=== PATIENT | male | born 1955 | race Caucasian/White ===

== ENCOUNTER 2022-04-16 16:12 | Outpatient (CLI) | payer BC, SELFPAY ==
--- NOTE | ~2022-04-16 | CT_ITS ---
EXAMINATION: CT lung screening DATE: 04/16/2022 16:39 INDICATION: 40 pack-year smoking history TECHNIQUE: Computed tomography (CT) of the chest was performed without intravenous contrast. Automate d exposure control and iterative reconstruction technique were employed. Exam dose: 234.80 mGy-cm to yesenia exam DLP. COMPARISON: 11/04/2015 CT chest FINDINGS: Stable 3.5 mm peripheral middle lobe opacity since 11/04/2015. Stable pleural-based 4 mm right lower lobe opacity, unchanged since 11/04/2015. Left lower lobe calcified pulmonary granuloma. Chronic mild discoid scar of the lingula. Calcified left hilar and particularly calcified subcarinal nodes and multiple hepatic and splenic ely cified granulomas, consistent with old granulomatous disease. Normal heart size. No pericardial or pleural effusion. No hilar or mediastinal mass lesion or lymphad enopathy. No thoracic aortic aneurysm. Normal morphology of the adrenal glands. Prominent degenerative disc disease in the lower cervical spine. Diffuse idiopathic skeletal hyperost osis of the thoracic spine. IMPRESSION: Lung RADS category 1: Negative Recommendation: Continue annual screening with LDCT in 12 months Reviewed, dictated and finalized at [facility]. Reviewed, dictated and finalized at location A. IGN EXCHANGE STUDENT COORDINATOR
== END 2022-04-16 16:13 | disposition home or self-care (01) ==
PROVIDERS: PCP Family Medicine; Visit Provider Physician Assistant
DX: Z12.2 Encounter for screening for malignant neoplasm of respiratory organs (principal); F17.210 Nicotine dependence, cigarettes, uncomplicated
CPT/HCPCS: 71271

== ENCOUNTER 2023-10-21 20:43 | Emergency (ER) | payer MEDICARE, SELFPAY ==
--- NOTE | ~2023-10-21 | CT_ITS ---
EXAMINATION: CT abdomen pelvis wo con DATE: 10/22/2023 05:24 INDICATION: Right lower back pain. TECHNIQUE: Computed tomography (CT) of the abdomen and pelvis was performed without intravenous contr ast. The dose-length product was 941.46 mGy-cm. Automated exposure control and iterative reconstructi on technique were employed. COMPARISON: None. FINDINGS: Lung bases unremarkable. Heart size normal. No significant pleural or pericardial effusion. There are calcified granulomas of the liver and spleen. There is atherosclerosis of the aorta without evidence for aneurysm. Nonobstructive bowel gas pattern . Bladder is decompressed. Gallbladder is present. Pancreas, adrenal glands and right kidney are unremarkable. There is 2 mm non obstructing left renal stone. No ureteral stone or hydronephrosis. There is ectasia of the aorta with infrarenal abdominal aortic aneurysm measuring 3.7 cm. There is a retroaortic left renal vein. There is osteoarthritis of the hips. Moderate lumbar spondylosis. No evidence for hernia. No abnormal pelv ic masses or fluid collections. No lymphadenopathy. IMPRESSION: 1. No acute abdominal abnormality. 2: Nonobstructing left nephrolithiasis. 3: Infrarenal abdominal aortic aneurysm measuring 3.7 cm. Reviewed, dictated and finalized at location [facility].
[2023-10-21 20:54] VITALS: BP 143/68; PULSE 68; RESP 18; TEMP 36.5; O2SAT 97
[2023-10-21 21:11] LABS: Appearance Urine Clear (Clear); Bacteria Urine None Seen /hpf; Bilirubin Urine Negative (Negative); Blood Urine Trace (Negative); Color Urine Yellow (Yellow); Glucose Urine UA Negative (Negative); Ketones Urine Negative (Negative); Leukocyte Esterase Ur Negative LEU/UL (Negative); Nitrate Urine Negative (Negative); Non Pathogenic Casts 0-2; Protein Urine Trace mg/dL (Negative); Specific Grav Ur 1.033 (1.001-1.035); Squamous Epithelial Cell Urine None Seen /hpf (Few); WBC Urine 0-5 /hpf (0-3); pH Urine 5.5 (5.0-9.0)
[2023-10-21 21:14] LABS: Add Urine Microscopic? YES
[2023-10-22] VITALS (15 sets, daily range): BP systolic 137; BP diastolic 84; PULSE 68–74; RESP 16–18; O2SAT 94–100
[2023-10-22 03:30] LABS: Basophils Absolute Auto 0.1 K/mm3 (0.0-0.1); Basophils Percent Auto 0.9 % (0.2-1.2); Eosinophils Absolute Auto 0.7 K/mm3 (0-0.3); Eosinophils Percent Auto 6.4 % (0-4.4); Hematocrit 45.9 % (42.0-52.0); Hemoglobin 14.8 g/dL (14.0-18.0); Immature Granulocyte Absolute 0.05 K/mm3 (0.00-0.031); Immature Granulocyte Percent A 0.5 % (0-0.5); Lymphocytes Absolute Auto 4.04 K/mm3 (0.9-3.2); Lymphocytes Percent Auto 36.7 % (18.3-44.2); Mean Corpuscular HGB Conc 32.2 g/dl (32-36); Mean Corpuscular Hemoglobin 30.1 pg (26-34); Mean Corpuscular Volume 93.3 fl (80-100); Mean Platelet Volume 10.4 fl (7.4-10.4); Monocytes Absolute Auto 1.1 K/mm3 (0.1-0.6); Monocytes Percent Auto 9.6 % (2.6-8.5); Neutrophils Absolute Auto 5.1 K/mm3 (1.3-6.7); Neutrophils Percent Auto 45.9 % (45.5-73.1); Platelet Count Result 234 k/mm3 (150-375); Red Blood Count 4.92 M/mm3 (4.6-6.20); Red Cell Distribution Width 13.6 % (11.5-14.5)
[2023-10-22 03:39] LABS: Alanine Aminotransferase 26 U/L (6-50); Albumin Level 4.6 g/dL (3.5-5.1); Alkaline Phosphatase 78 U/L (38-126); Anion Gap 9 mmol/L (4-12); Aspartate Amino Transferase 37 U/L (17-59); Bilirubin,Total 0.5 mg/dL (0.2-1.3); Blood Urea Nitrogen 20 mg/dL (9-20); Calcium 10.6 mg/dL (8.4-10.2); Carbon Dioxide 25 mmol/L (22-30); Chloride 105 mmol/L (98-107); Estimated CRCL calculation 79 ml/min; Estimated Glomerular Filt Rate > 60; Glucose 99 mg/dL (65-110); Lipase 119 U/L (23-300); Sodium 139 mmol/L (137-145)
[2023-10-22] MEDS: methocarbamoL 750 MG TABLET 1500 MG PO (05:08)
[2023-10-22] MEDS: ACETAMINOPHEN 500 MG TABLET 1000 MG PO (05:08)
[2023-10-22] MEDS: KETOROLAC 15 MG/ML VIAL (*BKC) IV PUSH (05:09)
--- NOTE | 2023-10-22 06:17 | ED.GENADULT ---
HPI - General Adult General Chief complaint: Back Pain/Injury Stated complaint: back pain Time Seen by Provider: 10/22/23 03:59 History of Present Illness HPI narrative: This is a 68-year-old male presenting lower back pain. Patient pain is in the right paralumbar area and radiates into his groin. It is significantly worse with movement. He has taken Motrin with some relief. Patient denies fevers chills nausea vomiting diarrhea. Does note some slight dysuria without urgency or frequency. Patient denies history of cancer, urinary retention bowel incontinence her low lower extremity weakness. No history of IV drug abuse. Related Data Allergies Allergy/AdvReac Type Severity Reaction Status Date / Time codeine Allergy Unknown Itching Verified 09/17/22 15:57 [facility] Past Medical History Medical History (Updated 10/22/23 @ 06:26 by Jefferson Zambrano MD) Aortic valve stenosis IFG (impaired fasting glucose) Serum calcium elevated Family History Family History Sibling Carcinoma of colon Social History Social History Smoking status: Current every day smoker Tobacco type: cigarettes Second hand tobacco smoke exposure: Yes Smoking end date: 04/04/16 Alcohol intake: current Substance use: never Substance use type: does not use Living arrangements: with family Occupation/Education: occupation Gender identity (if verbalized by the patient): Male Exam Narrative: APPEARANCE: No apparent distress. Head: atraumatic. EYES: EOMI, NOSE: Atraumatic NECK: Trachea midline RESPIRATORY: No increased rate of breathing CARDIOVASCULAR: RRR, ABDOMINAL: Non-distended MUSCULOSKELETAl: Reproducible pain with the patient sits up, straight leg negative bilaterally, no tenderness palpation in the paralumbar region NEURO: Alert. Moving 4/4 extremities SKIN:: Warm, dry. Normal color PSYCHIATRIC: Normal affect Course Vital Signs Vital signs: Vital Signs Temperature 97.7 F 10/21/23 20:54 Pulse Rate 68 10/21/23 20:54 Respiratory Rate 18 10/21/23 20:54 Blood Pressure 143/68 H 10/21/23 20:54 Pulse Oximetry 97 10/21/23 20:54 Oxygen Delivery Room Air 10/21/23 20:54 Temperature 97.7 F 10/21/23 20:54 Pulse Rate 74 10/22/23 00:17 Respiratory Rate 18 10/22/23 00:17 Blood Pressure 137/84 10/22/23 00:17 Pulse Oximetry 98 10/22/23 00:17 Oxygen Delivery Room Air 10/21/23 20:54 Medical Decision Making MDM Narrative Medical decision making narrative: -Course: 68-year-old male presenting with right paralumbar pain. CT showed osteoarthritis of the hips but no other acute findings. Laboratory studies unremarkable. Patient improved with NSAIDs and muscle relaxers. Patient will be discharged. Given return precautions. Patient informed of incidental 3.7 cm abdominal aortic aneurysm -DDX includes but is not limited to: Lower back strain, kidney stone, sciatica, appendicitis -Independent interpretation of studies: Lab reviewed Imaging review -Interventions: Toradol, Tylenol, Robaxin -Shared decision making / Disposition: discharged -RX Tylenol Robaxin Vital Signs Vital Signs: Vital Signs Temperature 97.7 F 10/21/23 20:54 Pulse Rate 68 10/21/23 20:54 Respiratory Rate 18 10/21/23 20:54 Blood Pressure 143/68 H 10/21/23 20:54 Pulse Oximetry 97 10/21/23 20:54 Oxygen Delivery Room Air 10/21/23 20:54 Temperature 97.7 F 10/21/23 20:54 Pulse Rate 74 10/22/23 00:17 Respiratory Rate 18 10/22/23 00:17 Blood Pressure 137/84 10/22/23 00:17 Pulse Oximetry 98 10/22/23 00:17 Oxygen Delivery Room Air 10/21/23 20:54 Lab Data 10/22/23 03:23 10/22/23 03:23 Labs: Lab Results 10/21/23 10/22/23 Range/Units 21:01 03:23 WBC 11.0 H (4.5-10.0) K/mm3 RBC 4.92 (4.6-6.20) M/mm3 Hgb 14.8 (
== END 2023-10-22 06:54 | disposition home or self-care (01) ==
PROVIDERS: Emergency Provider Emergency Medicine; PCP Family Medicine
DX: M54.50 Low back pain, unspecified (principal); I35.0 Nonrheumatic aortic (valve) stenosis; Z87.891 Personal history of nicotine dependence; M16.0 Bilateral primary osteoarthritis of hip; Z79.899 Other long term (current) drug therapy; Z79.82 Long term (current) use of aspirin
CPT/HCPCS: 36415; 74176; 80053; 81001; 83690; 85025; 96374; 99284; A9270; J1885

== ENCOUNTER 2024-06-22 10:16 | Outpatient (CLI) | payer MEDICARE, SELFPAY ==
--- NOTE | ~2024-06-22 | CT_ITS ---
CT Scan of the Chest without Contrast: Clinical Indication: Lung cancer screening, nicotine dependence Technique: Contiguous sections were acquired throughout the chest without intravenous contrast. Dose reduction technique was used on this scan by utilizing automated exposure control and iterative recon struction technique. The dose-length product (DLP) was 264.57 mGy-cm. COMPARISON: 06/17/2023 Findings: There is no evidence of any significant mediastinal, hilar or axillary lymphadenopathy. Densely calci fied subcarinal and left hilar lymph nodes are present. Coronary artery calcifications are present. T here is prominent calcification at the region of the aortic valve. There is no evidence of pleural or pericardial effusion. Stable 3 mm right middle lobe pulmonary nodule. Stable calcified left basilar granuloma. Images through the upper abdomen reveal no abnormalities. Impression: Lung RADS 2: Benign appearance. 12 month follow-up screening CT advised. Reviewed, dictated and finalized at [facility]. Impression: Lung RADS 2: Benign appearance. 12 month follow-up screening CT advised.
--- OUTSIDE RECORDS SUMMARY | 2024-06-22 11:23 | XMS_ITS | Patient Health Record ---
Author Organization [facility] Address [address] [place] [address] Support Name Relationship Address Phone Alfreda Moura Emergency Contact Unknown Mac Alonso Guarantor Unknown [phone] REASON FOR REFERRAL No Information MEDICATIONS Medication SIG (Take, Route, Frequency, Duration) Notes Start Date End Date Status Levothyroxine Sodium 50 MCG 1 tab(s) ora lly once a day for 30 day(s) Active SOCIAL HISTORY Tobacco Use: Social History Observation Description Date Details (start date - stop date) Current Smoker NA - NA Sex Assigned At : Social History Observation Description Sex Assigned At Unknown Tobacco Use: Question Answer Notes Are you a: current smoker How often do you smoke? every day How many cigarettes a day do you smoke? 11-20 How soon after you wake do you smoke your first cigarette? 31-60 min Are you interested in quitting? Not ready to asuncion t PLAN OF TREATMENT No Information Insurance Providers Payer Name Payer Address Payer Phone Subscriber Number Group Number Insured Name Patient Relationship to Insured Coverage Start Date Coverage End Date [id number] [place] [address] [id number] Mac Alonso Self - patient is the insured
--- OUTSIDE RECORDS SUMMARY | 2024-06-22 11:24 | XMS_ITS | Clinical Summary ---
Author Organization [facility] Address [address] [place] [id number] Care Team Providers Care Signs Cleaner Name Role Phone Alberto Urias MD Primary Care Provider [phone] Social History Tobacco Use Types Packs/Day Years Used Date Smoking Tobacco: Never Assessed Sex and Gender Information Value Date Recorded Sex Assigned at Not on file Legal Sex Male 9:41 PM CDT Gender Identity Not on file Sexual Orientation Not on file Plan of Treatment Health Maintenance Due Date Last Done Comments Colorectal Cancer Screening Colonoscopy (10 Years) 1955 Hepatitis C 1974 DTaP, Tdap and Td Vaccines ( 1 - Tdap) 1975 Zoster Vaccines (1 of 2) 2006 Pneumococcal Vaccine: 65+ Ye ars (1 of 1 - PCV) 2021 COVID-19 Vaccine ( - 2023-2 5 season) 2023 Influenza Adult (#1) 2024 RSV Immunization or 60+ Years (1 - 1-dose 75+ series) 2031 Meningococcal B Vaccine Aged Out No l onger eligible based on patient's age to complete this topic Meningococcal Vaccine Aged Out No jyoti anna eligible based on patient's age to complete this topic RSV Immunizations Under 20 Months Aged Out No longer eligible based on patient's age to complete this topic Care Teams Signs Cleaner Relationship Specialty Start Date End Date Alberto Urias MD [address] [place] [address] PCP - General 09/11/14
--- OUTSIDE RECORDS SUMMARY | 2024-06-22 11:24 | XMS_ITS | Referral Summary ---
Author Organization [facility] [address] [facility] [address] Address [address] [place] [address] Care Team Providers Care Full Stack Software Developer Name Role Phone Alberto Urias MD Primary Care Provider Encounters Date Type Department Care Team Description 06/08/2024 11:15 AM CHANNEL ROUGHER Ancillary Procedure [facility] Medical [facility] Cardiology at [address] [place] [address] Nonrheumatic aortic valve stenosis; Coronary artery disease involving [place] coronary artery of [place] heart without angina pectoris 05/18/2024 11:00 AM CHANNEL ROUGHER Office Visit [facility] Cardiology at [address] [place] [address] Jamal Calvert MD Nonrheumatic aortic valve stenosis (Primary Dx); Coronary artery disease involving [place] coronary artery of [place] heart without angina pectoris; NSTEMI (non-ST elevated myocardial infarction) ([facility]); Severe obesity ([facility]) from Last 3 Months Allergies Active Allergy Reactions Criticality Noted Date Comments Codeine Itching Low Medications aspirin 81 mg chewable tablet Take 1 tablet (81 mg total) by mouth daily 7 Active clobetasol (CLOBEX) 0.05 % shampooIndicati ons:Scalp Psoriasis 4 8 Active nitroglycerin (NITROSTAT) 0.[address] 1 TABLET UNDER THE TONGUE NEEDED FOR CHEST PAIN. MAX 3 TABS 5 MINUTES APART 94 7 Active CHANTIX CONTINUING MONTH BOX 1 mg tabletIndicatio ns:Smoking Cessation 3 8 Active albuterol HFA (PROVENTIL HFA,VENTOLIN HFA,PROAIR HFA) 90 mcg/actuation inhalerIndicati ons:Bronchitis Inhale 2 puffs every 6 (six) hours as needed for wheezing or shortness of breath 1 each 4 Active benzonatate (TESSALON) 200 mg capsuleIndicati ons:Bronchitis Take 1 capsule (200 mg total) by mouth 3 (three) times a day as needed for cough 30 capsule 4 Active metoprolol XL (TOPROL-XL) 25 mg extended release tablet Take 1 tablet (25 mg total) by mouth daily Active levothyroxine (SYNTHROID) 150 mcg tablet Take 1 tablet (150 mcg total) by mouth cook's assistant before breakfast Active rosuvastatin (CRESTOR) 5 mg tablet Take 1 tablet (5 mg total) by mouth daily Active Active Problems Problem Noted Date Diagnosed Date Severe obesity 05/18/2024 Essential hypertension 04/29/2017 Mixed hyperlipidemia 04/29/2017 Nonrheumatic aortic valve stenosis 04/29/2017 Bilateral carotid bruits 04/29/2017 Bicuspid aortic valve 04/29/2017 Coronary artery disease invo lving [place] coronary artery of [place] heart without angina pectoris 04/29/2017 Dietary counseling 04/29/2017 NSTEMI (non-ST elevated myocardial infarction) 0 04/26/2016 Social History Tobacco Use Types Packs/Day Years Used Date Smoking Tobacco: Heavy Smoker Smokeless Tobacco: Never Comments:Smoking History Pac ks/day: 1.5 Packs Alcohol Use Standard Drinks/Week Comments Yes 0 (1 standard drink = 0.6 oz pur e alcohol) Sex and Gender Information Value Date Recorded Sex Assigned at Not on file Legal Sex Male 1:06 PM CHANNEL ROUGHER Gender Identity Not on file Sexual Orientation Not on file Last Filed Vital Signs Vital Sign Reading Time Taken Comments Blood Pressure 122/86 05/18/2024 10:54 AM CHANNEL ROUGHER Pulse 86 05/18/2024 10:54 AM CHANNEL ROUGHER Temperature 37.1 C (98.8 F) 07/22/2023 12:42 PM CDT Respiratory Rate 20 07/22/2023 12:42 PM CDT Oxygen Saturation 94% 05/18/2024 10:54 AM CHANNEL ROUGHER Inhaled Oxygen Concentration - - Weight 116.1 kg (256 lb) 05/18/2024 10:54 AM CHANNEL ROUGHER Height 180.3 cm (5' 11 ) 05/18/2024 10:54 AM CHANNEL ROUGHER Body Mass Index 35.7 05/18/2024 10:54 AM CHANNEL ROUGHER Plan of Treatment Not on file Procedures Procedure Name Priority Date/Time Associated Diagnosis Comments TRANSTHORACIC ECHO (TTE) COMPLETE W DOPPLER/CF WO CONTRAST Routine 06/08/2024 11:47 AM CHANNEL ROUGHER Nonrheumatic aortic valve stenosis Coronary artery disease involving [place] coronary artery of [place] heart without angina pectoris ELECTROCARDIOGRAM REPORT Routine 025 11:52 AM CHANNEL ROUGHER NSTEMI (non-ST elevated myocardial infarction) (HCC) from Last 3 Months Results * TRANSTHORACIC ECHO (TTE) COMPLETE W DOPPLER/CF WO CONTRAST (06/08/2024 11:47 AM CHANNEL ROUGHER) LV EF 65 % CONS SCIMAGE Anatomical Region Laterality Modality Ultrasound 06/08/2024 11:1 2 AM CHANNEL ROUGHER Narrative 06/08/2024 12:25 PM CHANNEL ROUGHER [facility] Medical Group Cardiology [facility], [address], [place] [address] P:[phone] P:[phone] Echocardiographic Report Patient Name: FLORENTIN CARRILLO B : 1955 Study Date: 06/08/2024 11:12:26 AM Gender: M Tech: Location: [facility] Ref Provider: JAMAL CALVERT Height(Cm): 180 BSA: 2.41 Weight(Kg): 116.1 Heart Rate: 70 BP: 122 / 86 Quality: Good Order Provider: JAMAL CALVERT PROCEDURES: Echocardiographic Report: Transthoracic echocardiogram with complete 2D, M-Mode, and color Doppler examination. With Strain Analysis. INDICATIONS: Coronary Artery Disease and I35.0 Nonrheumatic aortic (valve) stenosis. MEASUREMENTS: 2D/MM Value Range Doppler Value Range EF Mod BP 63 % [ 52 - 72 ] MERLE Vmax 0.67 cm2 [ 2.00 - 4.00 ] EF Teich MM 54 % [ 52 - 72 ] AV Mean PG 41 mmHg Estimated EF 65 % AV Peak Jaime 3.88 m/s [ 1.00 - 1.70 ] LVIDd 2D 5.26 cm [ 4.20 - 5.80 ] AV Peak PG 60 mmHg LVIDd MM 4.96 cm [ 4.20 - 5.80 ] AV VTI 90.99 cm LVIDs 2D 3.57 cm [ 2.50 - 4.00 ] LVOT Diam 2.07 cm [ 1.70 - 2.10 ] LVIDs MM 3.56 cm [ 2.50 - 4.00 ] LVOT Peak Jaime 0.77 m/s [ 0.70 - 1.10 ] LVPWd 2D 1.36 cm [ 0.60 - 1.00 ] LVOT VTI 18.47 cm LVPWd MM 1.06 cm [ 0.60 - 1.00 ] MV E Peak Jaime 0.49 m/s [ 0.60 - 1.30 ] IVSd 2D 1.44 cm [ 0.60 - 1.00 ] MV A Peak Jaime 0.67 m/s [ 1.00 - 1.20 ] IVSd MM 1.16 cm [ 0.60 - 1.00 ] MV Decel Time 378 msec [ 104 - 258 ] LA Dimension MM 3.94 cm [ 3.00 - 4.00 ] PV Peak Jaime 1.44 m/s [ 0.40 - 0.80 ] AoR Diam MM 4.21 cm [ 3.10 - 3.70 ] Lateral E` 0.04 m/s [ 0.10 - 0.15 ] LA Volume Index 17 cc/m2 [ 16 - 34 ] E/E` 12 2D/MM Value Range Doppler Value Range - FINDINGS: Interpretation Site: Exam was interpreted at [facility]. Left Ventricle: Normal left ventricular size. Moderate concentric left ventricular hypertrophy. Normal global left ventricular systolic function. Impaired diastolic relaxation Grade I. Ejection fraction is measured at 63 %. Ejection Fraction is visually estimated to be 65 %. Global Longitudinal Strain is -14 %. Right Ventricle: Normal right ventricular size. Left Atrium: Left atrial size is within upper limits of normal. Right Atrium: The right atrium is normal in size. Atrial Septum: Normal atrial septum. Mitral Valve: Normal appearance of the mitral valve. Aortic Valve: Severe aortic stenosis. Peak Velocity of 3.88 m/s. Peak gradient of 60.0 mmHg. Mean gradient of 41.0 mmHg. Valve area of 0.7 cm2. Possible bicuspid aortic valve. No aortic regurgitation. Tricuspid Valve: Normal appearance of the tricuspid valve. Mild tricuspid regurgitation. Pulmonic Valve: Normal appearance of the pulmonic valve. Pericardium: Normal pericardium with no significant pericardial effusion. Aorta: Normal aortic root. IVC: Normal size and normal respiratory collapse consistent with normal right atrial pressure (<5 mmHg). Pulmonary Artery: Normal pulmonary artery size. CONCLUSIONS: Normal left ventricular size. Moderate concentric left ventricular hypertrophy. Normal global left ventricular systolic function. Impaired diastolic relaxation Grade I. Ejection fraction is measured at 63 %. Ejection Fraction is visually estimated to be 65 %. Global Longitudinal Strain is -14 %. Severe aortic stenosis. Peak Velocity of 3.88 m/s. Peak gradient of 60.0 mmHg. Mean gradient of 41.0 mmHg. Valve area of 0.7 cm2. Suspect bicuspid aortic valve. No aortic regurgitation. Electronically Signed By: Jamal Calvert MD, [facility] 06/08/2024 12:24:45 PM CHANNEL ROUGHER Procedure Note Jamal Calvert MD - 06/08/2024 [facility] Medical Group Cardiology [address] [place] [address], [address], [place] [address] P:[phone] P:[phone] Echocardiographic Report Patient Name: FLORENTIN CARRILLO B : 1955 Study Date: 06/08/2024 11:12:26 AM Gender: M Tech: Location: [facility] Ref Provider: JAMAL CALVERT Height(Cm): 180 BSA: 2.41 Weight(Kg): 116.1 Heart Rate: 70 BP: 122 / 86 Quality: Good Order Provider: JAMAL CALVERT PROCEDURES: Echocardiographic Report: Transthoracic echocardiogram with complete 2D, M-Mode, and color Dopplerexamination. With Strain Analysis. INDICATIONS: Coronary Artery Disease and I35.0 Nonrheumatic aortic (valve) stenosis. MEASUREMENTS: 2D/MM Value Range Doppler ValueRange EF Mod BP 63 % [ 52 - 72 ] MERLE Vmax 0.67cm2 [ 2.00 - 4.00 ] EF Teich MM 54 % [ 52 - 72 ] AV Mean PG 41mmHg Estimated EF 65 % AV Peak Jaime 3.88m/s [ 1.00 - 1.70 ] LVIDd 2D 5.26 cm [ 4.20 - 5.80 ] AV Peak PG 60mmHg LVIDd MM 4.96 cm [ 4.20 - 5.80 ] AV VTI 90.99cm LVIDs 2D 3.57 cm [ 2.50 - 4.00 ] LVOT Diam 2.07 cm[ 1.70 - 2.10 ] LVIDs MM 3.56 cm [ 2.50 - 4.00 ] LVOT Peak Jaime 0.77m/s [ 0.70 - 1.10 ] LVPWd 2D 1.36 cm [ 0.60 - 1.00 ] LVOT VTI 18.47cm LVPWd MM 1.06 cm [ 0.60 - 1.00 ] MV E Peak Jaime 0.49m/s [ 0.60 - 1.30 ] IVSd 2D 1.44 cm [ 0.60 - 1.00 ] MV A Peak Jaime 0.67m/s [ 1.00 - 1.20 ] IVSd MM 1.16 cm [ 0.60 - 1.00 ] MV Decel Time 378msec [ 104 - 258 ] LA Dimension MM 3.94 cm [ 3.00 - 4.00 ] PV Peak Jaime 1.44m/s [ 0.40 - 0.80 ] AoR Diam MM 4.21 cm [ 3.10 - 3.70 ] Lateral E` 0.04m/s [ 0.10 - 0.15 ] LA Volume Index 17 cc/m2 [ 16 - 34 ] E/E` 12 2D/MM Value Range Doppler ValueRange - FINDINGS: Interpretation Site: Exam was interpreted at [facility]. Left Ventricle: Normal left ventricular size. Moderate concentric left ventricularhypertrophy. Normal global left ventricular systolic function. Impaired diastolic relaxationGrade I. Ejection fraction is measured at 63 %. Ejection Fraction is visuallyestimated to be 65 %. Global Longitudinal Strain is -14 %. Right Ventricle: Normal right ventricular size. Left Atrium: Left atrial size is within upper limits of normal. Right Atrium: The right atrium is normal in size. Atrial Septum: Normal atrial septum. Mitral Valve: Normal appearance of the mitral valve. Aortic Valve: Severe aortic stenosis. Peak Velocity of 3.88 m/s. Peak gradient of 60.0mmHg. Mean gradient of 41.0 mmHg. Valve area of 0.7 cm2. Possible bicuspid aorticvalve. No aortic regurgitation. Tricuspid Valve: Normal appearance of the tricuspid valve. Mild tricuspid regurgitation. Pulmonic Valve: Normal appearance of the pulmonic valve. Pericardium: Normal pericardium with no significant pericardial effusion. Aorta: Normal aortic root. IVC: Normal size and normal respiratory collapse consistent with normal rightatrial pressure (<5 mmHg). Pulmonary Artery: Normal pulmonary artery size. CONCLUSIONS: Normal left ventricular size. Moderate concentric left ventricularhypertrophy. Normal global left ventricular systolic function. Impaired diastolic relaxationGrade I. Ejection fraction is measured at 63 %. Ejection Fraction is visuallyestimated to be 65 %. Global Longitudinal Strain is -14 %. Severe aortic stenosis. Peak Velocity of 3.88 m/s. Peak gradient of 60.0mmHg. Mean gradient of 41.0 mmHg. Valve area of 0.7 cm2. Suspect bicuspid aorticvalve. No aortic regurgitation. Electronically Signed By: Jamal Calvert MD, [facility] 06/08/2024 12:24:45 PM CHANNEL ROUGHER us Jamal Calvert MD CV ECHO PROCEDURES Final Result * Electrocardiogram Report (05/18/2024 11:52 AM CHANNEL ROUGHER) us Jamal Calvert MD ECG ORDERABLES Final Re sult from Last 3 Months Insurance [facility] MEDICARE ADVANTAGE [facility] MEDIC[facility] Address: [address] [address] Care Teams Full Stack Software Developer Relationship Specialty Start Date End Date Alberto Urias MD [address] [place] [address] PCP - General 10/03/14
--- OUTSIDE RECORDS SUMMARY | 2024-06-22 11:24 | XMS_ITS | Clinical Summary ---
Author Organization [facility] [address] Address [address] [place] [address] Care Team Providers Care Inventory Control Assistant Name Role Phone Alberto Urias MD Primary Care Provider Allergies Active Allergy Reactions Criticality Noted Date [...] 1 tablet (150 mcg total) by mouth quiller hand before breakfast Active rosuvastatin (CRESTOR) 5 mg tablet Take 1 tablet (5 mg total) by mouth daily Active Active Problems Problem Noted Date Diagnosed Date Severe obesity 05/18/2024 Essential hypertension 04/29/2017 Mixed hyperlipidemia 04/29/2017 Nonrheumatic aortic valve stenosis 04/29/2017 Bilateral carotid bruits 04/29/2017 Bicuspid aortic valve 04/29/2017 Coronary artery disease invo lving [place] coronary artery of [place] heart without angina pectoris 04/29/2017 Dietary counseling 04/29/2017 NSTEMI (non-ST elevated myocardial infarction) 0 04/26/2016 Encounters Date Type Department Care Team Description 06/08/2024 11:15 AM EVAPORATOR SUPERVISOR Ancillary Procedure [facility] Medical [facility] Cardiology at [address] [place] [phone] Nonrheumatic aortic valve stenosis; Coronary artery disease involving [place] coronary artery of [place] heart without angina pectoris 05/18/2024 11:00 AM EVAPORATOR SUPERVISOR Office Visit [facility] Cardiology at [address] [place] [id number] Jamal Calvert MD Nonrheumatic aortic valve stenosis (Primary Dx); Coronary artery disease involving [place] coronary artery of [place] heart without angina pectoris; NSTEMI (non-ST elevated myocardial infarction) (HCC); Severe obesity (HCC) from Last 3 Months Medical History Medical History Date Comments Hyperlipidemia Hypertension Thyroid disease Valvular disease Coronary artery disease Dietary counseling 04/29/2017 Family History Medical History Relation Name Comments Diabetes Brother Stroke Father Relation Name Status Comments Brother Father Mother Alive Social History Tobacco Use Types Packs/Day Years Used Date Smoking Tobacco: Heavy Smoker Smokeless Tobacco: Never Comments:Smoking History Pac ks/day: 1.5 Packs Alcohol Use Standard Drinks/Week Comments Yes 0 (1 standard drink = 0.6 oz pur e alcohol) Sex and Gender Information Value Date Recorded Sex Assigned at Not on file Legal Sex Male 1:06 PM EVAPORATOR SUPERVISOR Gender Identity Not on file Sexual Orientation Not on file Obstetrics History Last Filed Vital Signs Vital Sign Reading Time Taken Comments Blood Pressure 122/86 05/18/2024 10:54 AM EVAPORATOR SUPERVISOR Pulse 86 05/18/2024 10:54 AM EVAPORATOR SUPERVISOR Temperature 37.1 C (98.8 F) 07/22/2023 12:42 PM CDT Respiratory Rate 20 07/22/2023 12:42 PM CDT Oxygen Saturation 94% 05/18/2024 10:54 AM EVAPORATOR SUPERVISOR Inhaled Oxygen Concentration - - Weight 116.1 kg (256 lb) 05/18/2024 10:54 AM EVAPORATOR SUPERVISOR Height 180.3 cm (5' 11 ) 05/18/2024 10:54 AM EVAPORATOR SUPERVISOR Body Mass Index 35.7 05/18/2024 10:54 AM EVAPORATOR SUPERVISOR Plan of Treatment Health Maintenance Due Date Last Done Comments Colon Cancer Screening-Colonoscopy 1955 Depression Screening 1955 Fall Risk Assessment 1955 Hepatitis C Screening 1955 Prostate Cancer Screening-PSA 1956 DTaP/Tdap/Td Vaccine (1 - Tdap) 1967 Hepatitis B Screening 1974 Pneumococcal vaccine 65+ (1 of 2 - PCV) 1975 Zoster Vaccine (1 of 2) 2006 Abdominal Aortic Aneurysm (AAA) Screen 2021 Well Visit 65+ 2021 Covid-19 Vaccine (3 - season) 2023, 11/06/2020 Influenza Vaccine (#1) 2023 Procedures Procedure Name Priority Date/Time Associated Diagnosis Comments TRANSTHORACIC ECHO (TTE) COMPLETE W DOPPLER/CF WO CONTRAST Routine 06/08/2024 11:47 AM EVAPORATOR SUPERVISOR Nonrheumatic aortic valve stenosis Coronary artery disease involving [place] coronary artery of [place] heart without angina pectoris ELECTROCARDIOGRAM REPORT Routine 025 11:52 AM EVAPORATOR SUPERVISOR NSTEMI (non-ST elevated myocardial infarction) (HCC) from Last 3 Months Results * TRANSTHORACIC ECHO (TTE) COMPLETE W DOPPLER/CF WO CONTRAST (06/08/2024 11:47 AM EVAPORATOR SUPERVISOR) LV EF 65 % CONS SCIMAGE Anatomical Region Laterality Modality Ultrasound 06/08/2024 11:1 2 AM EVAPORATOR SUPERVISOR Narrative 06/08/2024 12:25 PM EVAPORATOR SUPERVISOR [facility] [address], [place] [address] P:[phone] P:[phone] Echocardiographic Report Patient Name: FLORENTIN CARRILLO B : 1955 Study Date: 06/08/2024 11:12:26 AM Gender: M Tech: Location: [facility] Provider: JAMAL CALVERT Height(Cm): 180 BSA: 2.41 [...] FINDINGS: Interpretation Site: Exam was interpreted at [facility]. Left Ventricle: Normal left ventricular size. Moderate [...] regurgitation. Electronically Signed By: Jamal Calvert MD, [facility] 06/08/2024 12:24:45 PM EVAPORATOR SUPERVISOR Procedure Note Jamal Calvert MD - 06/08/2024 [facility] [address], [address], [place] [address] P:[phone] P:[phone] Echocardiographic Report Patient Name: FLORENTIN CARRILLO B : 1955 Study Date: 06/08/2024 11:12:26 AM Gender: M Tech: Location: [facility] Ref Provider: JAMAL CALVERT Height(Cm): 180 [...] FINDINGS: Interpretation Site: Exam was interpreted at [facility]. Left Ventricle: Normal left ventricular size. Moderate [...] regurgitation. Electronically Signed By: Jamal Calvert MD, [facility] 06/08/2024 12:24:45 PM EVAPORATOR SUPERVISOR Jamal Calvert MD CV ECHO PROCEDURES Final Result * Electrocardiogram Report (05/18/2024 11:52 AM EVAPORATOR SUPERVISOR) Jamal Calvert MD ECG ORDERABLES Final Re sult from Last 3 Months Insurance [facility] MEDIC[facility]AGE Care Teams Inventory Control Assistant Relationship Specialty Start Date End Date Alberto Urias MD [address] [facility] [address] [place] [address] PCP - General 10/03/14
== END 2024-06-22 10:17 | disposition home or self-care (01) ==
PROVIDERS: PCP Family Medicine; Visit Provider Family Medicine
DX: Z12.2 Encounter for screening for malignant neoplasm of respiratory organs (principal); F17.210 Nicotine dependence, cigarettes, uncomplicated
CPT/HCPCS: 71271